=== PATIENT | female | born 1965 | race Caucasian/White ===

== ENCOUNTER 2019-11-20 10:17 | Outpatient (CLI) | payer OTHER, SELFPAY ==
--- NOTE | ~2019-11-20 | MM_ITS ---
EXAMINATION: MM screening [facility] BI w peterson HISTORY: Screening mammogram TECHNIQUE: Craniocaudal and mediolateral oblique 3-D tomosynthesis images were obtained and synthetic 2-D images were generated. Bilateral rotated lateral cc views. Bilateral rotated lateral CC views. ..CAD analysis was submitted and interpreted. COMPARISON: 11/14/2018, 11/01/2017, 10/30/2016 bilateral digital screening mammogram examinations BREAST PARENCHYMAL COMPOSITION: 11/14/2018, 11/01/2017, 10/30/2016 bilateral digital screening mammogram examinations FINDINGS: Scattered bilateral benign calcifications. There is no evidence of suspicious mass, calcifi cation, or architectural distortion to suggest malignancy in either breast. There has been no suspici ous interval change. IMPRESSION: 1. No mammographic evidence of malignancy. 2. Recommend routine screening mammography in one year. BI-RADS Category 2: Benign finding(s). Reviewed, dictated and finalized at location A.
== END 2019-11-20 10:18 | disposition home or self-care (01) ==
PROVIDERS: PCP Internal Medicine; Visit Provider Obstetrics & Gynecology
DX: Z12.31 Encounter for screening mammogram for malignant neoplasm of breast (principal)
CPT/HCPCS: 77063; 77067

== ENCOUNTER 2020-02-24 06:13 | Emergency (ER) | payer OTHER, SELFPAY ==
[2020-02-24] VITALS (11 sets, daily range): BP systolic 114–148; BP diastolic 65–71; PULSE 63; RESP 19; TEMP 36.8; O2SAT 100
--- NOTE | ~2020-02-24 | CT_ITS ---
EXAMINATION: CT abdomen pelvis w con DATE: 02/24/2020 09:20 INDICATION: Epigastric abdominal pain TECHNIQUE: Computed tomography (CT) of the abdomen and pelvis was performed with 100 cc Omnipaque 350 intravenous contrast. Automated exposure control and iterative reconstruction technique were employe d. Exam dose: 309.90 mGy-cm total exam DLP. COMPARISON: None. FINDINGS: There is minimal discoid atelectasis or scarring in the dependent lung bases. Normal heart size. No pericardial or pleural effusion. There is an approximately 6 mm left hepatic cyst. Probable very small cyst of the lower pole of the r ight kidney, too small to definitively characterize. Otherwise no hepatic, splenic, pancreatic, adren al or renal space-occupying mass lesion is evident. The gallbladder is present. No gallbladder wall t hickening. No pericholecystic fluid or fat stranding. No bile duct or pancreatic duct dilatation. Normal caliber of the abdominal aorta. No intraperitoneal or retroperitoneal or pelvic mass lesion or adenopathy or ascites. The uterus, adnexal areas and urinary bladder are unremarkable. No bowel obstruction or intraperitoneal free air is detected. There are nonspecific nondilated fluid distended small bowel segments. Probable bone island of right iliac crest. Included skeletal structures are otherwise unremarkable. IMPRESSION: Small hepatic cyst and probable very small right renal cyst Reviewed, dictated and finalized at Location A. Reviewed, dictated and finalized at location A.
--- NOTE | ~2020-02-24 | US_ITS ---
EXAMINATION: US right upper quadrant DATE: 02/24/2020 08:02 INDICATION: Right upper quadrant pain TECHNIQUE: Multiple grayscale and Doppler ultrasound images of the abdomen were obtained. COMPARISON: None available FINDINGS: The head, body, and tail of the pancreas are normal. The liver is normal with normal echoge nicity and echotexture. No surface nodularity. Normal hepatopetal flow in the main portal vein. The g allbladder is normal with no abnormal wall thickening, pericholecystic fluid or stones. The normal co mmon bile duct measures 5 mm. There was no sonographic Cunningham sign. IMPRESSION: 1. Normal sonographic study of the gallbladder. Reviewed, dictated and finalized at location B.
[2020-02-24 06:41] LABS: Basophils Percent Auto 0.4 % (0.2-1.2); Eosinophils Percent Auto 0.5 % (0-4.4); Hemoglobin 13.7 g/dL (12.0-15.0); Immature Granulocyte Absolute 0.03 K/mm3 (0.00-0.031); Immature Granulocyte Percent A 0.4 % (0-0.5); Lymphocytes Absolute Auto 1.44 K/mm3 (0.9-3.2); Lymphocytes Percent Auto 17.8 % (18.3-44.2); Mean Corpuscular HGB Conc 33.4 g/dl (32-36); Mean Corpuscular Hemoglobin 29.1 pg (26-34); Mean Corpuscular Volume 87.2 fl (80-100); Mean Platelet Volume 9.5 fl (7.4-10.4); Monocytes Absolute Auto 0.3 K/mm3 (0.1-0.6); Monocytes Percent Auto 3.5 % (2.6-8.5); Neutrophils Absolute Auto 6.3 K/mm3 (1.3-6.7); Neutrophils Percent Auto 77.4 % (45.5-73.1); Platelet Count Result 310 k/mm3 (150-375); Red Cell Distribution Width 12.2 % (11.5-14.5); White Blood Count 8.1 K/mm3 (4.5-10.0)
[2020-02-24 06:48] LABS: Add Urine Microscopic? YES; Amorphous Sediment Urine Moderate; Appearance Urine Turbid (Clear); Bilirubin Urine Negative (Negative); Blood Urine Negative (Negative); Color Urine Yellow (Yellow); Glucose Urine UA Negative (Negative); Ketones Urine Negative (Negative); Leukocyte Esterase Ur Trace LEU/UL (Negative); Mucus Urine Rare /lpf; Nitrate Urine Negative (Negative); Protein Urine Negative (Negative); Specific Grav Ur 1.018 (1.001-1.035); Urobilinogen Urine Negative mg/dL (<2.0); WBC Urine 0-3 /hpf
[2020-02-24 06:55] LABS: Alanine Aminotransferase 15 U/L (4-35); Albumin Level 4.5 g/dL (3.5-5.1); Alkaline Phosphatase 81 U/L (38-126); Anion Gap 7 mmol/L (8-16); Aspartate Amino Transferase 23 U/L (14-36); Bilirubin,Total 0.6 mg/dL (0.2-1.3); Blood Urea Nitrogen 12 mg/dL (7-17); Calcium 9.9 mg/dL (8.4-10.2); Carbon Dioxide 28 mmol/L (22-30); Chloride 99 mmol/L (98-107); Estimated CRCL calculation 72 ml/min; Estimated Glomerular Filt Rate > 60; Glucose 127 mg/dL (65-105); Lipase 35 U/L (23-300); Potassium 3.5 mmol/L (3.4-5.0); Sodium 134 mmol/L (137-145)
--- NOTE | 2020-02-24 07:13 | ECG_ITS ---
Measurements Intervals [place] Rate: 49 P: 67 CO: 142 QRS: 55 QRSD: 92 T: 66 QT: 471 QTc: 428 Interpretive Statements SINUS BRADYCARDIA VENTRICULAR PREMATURE COMPLEX ABNORMAL ECG Electronically Signed On 02-24-2020 8:21:47 CDT by Humberto Bateman D.O.
--- NOTE | 2020-02-24 07:14 | ED.ABDPAIN ---
HPI - Abdominal Pain General Chief Complaint: Abdominal Pain Stated Complaint: Abd pain Time Seen by Provider: 02/24/20 07:04 Source: patient Mode of arrival: ambulatory Limitations: no limitations History of Present Illness HPI narrative: This patient is 54 year old female who presents for evaluation of epigastric pain starting at midnight. She reports her pain has been constant. She denies any other associated sypmtoms such as nausea, vomiting, fever or chills. She denies any exacerbating factors. She tried taking over the counter medication without relief. She denies history of gallstones. MD elicited complaint: abdominal pain Onset (ago): hour(s) (7) Location: epigastric Quality: sharp Exacerbating factors: nothing Relieving factors: nothing Related Data Home Medications Medication Instructions Recorded Confirmed levothyroxine 02/24/20 Allergies Allergy/AdvReac Type Severity Reaction Status Date / Time No Known Allergies Allergy Verified 02/24/20 06:33 Review of Systems Review of Systems: All systems reviewed & are unremarkable except as noted in HPI and below Constitutional: Constitutional: Denies chills and Denies fever(s) Cardiovascular: Cardiovascular: Denies chest pain Respiratory: Respiratory: Denies cough and Denies dyspnea Gastrointestinal: Gastrointestinal: Reports abdominal pain, Reports diarrhea, Denies nausea and Denies vomiting PMFSH Past Medical History Medical History (Updated 02/24/20 @ 11:18 by Lelo Chong MD) Hypothyroid Surgical History Surgical History (Updated 02/24/20 @ 07:14 by Lelo Chong MD) History of thyroidectomy Social History Social History Smoking status: Never smoker Alcohol intake: never Exam Narrative: Exam Narrative: GENERAL: Well-appearing, well-nourished, and in no acute distress. HEAD: Normocephalic, atraumatic EYES: PERRLA and EOMI, conjunctiva clear without discharge THROAT:Mucous membranes moist, Oropharynx normal without erythema, exudate, peritonsillar swelling or fluctuance NECK: Supple, without lymphadenopathy or mass RESPIRATORY: No respiratory distress, Airway patent, Respirations non-labored, Clear to auscultation without rales, rhonchi or wheeze HEART: Regular rate and rhythm. No murmur heard. Normal peripheral pulses. ABDOMEN: Soft, nontender, nondistended, normal active bowel sounds. No masses. No rebound or guarding, No organomegaly. EXTREMITIES: No edema, normal strength with full range of motion. SKIN: Warm, dry, normal color without rash NEURO: Alert and oriented x3. CN 2-12 grossly intact. No focal deficits. PSYCH: Normal mood and affect. Course Reevaluation(s) Reevaluation #1: Patient states her pain is unchanged after GI cocktail. I will order CT scan. Date: 02/24/20 Time: 09:00 Reevaluation #2: she states she feels better. I discussed CT. She will follow up with pcp Date: 02/24/20 Time: 11:16 Vital Signs Vital signs: Vital Signs Temperature 98.2 F 02/24/20 06:18 Pulse Rate 63 02/24/20 06:18 Respiratory Rate 19 02/24/20 06:18 Blood Pressure 148/68 H 02/24/20 06:18 Pulse Oximetry 100 02/24/20 06:18 Temperature 98.2 F 02/24/20 06:18 Pulse Rate 63 02/24/20 06:18 Respiratory Rate 19 02/24/20 06:18 Blood Pressure 114/65 02/24/20 11:00 Pulse Oximetry 100 02/24/20 11:15 MDM - Abdominal Pain Lab Data Attestation: I reviewed the patient's lab results. Result diagrams: 02/24/20 06:34 02/24/20 06:34 Labs: Lab Results 02/24/20 02/24/20 02/24/20 Range/Units 06:34 06:34 06:34 WBC 8.1 (4.5-10.0) K/mm3 RBC 4.70 (4.2-5.4) M/mm3 Hgb 13.7 (12.0-15.0) g/dL Hct 41.0 (37.0-47.0) % MCV 87.2 (80-100) fl MCH 29.1 (26-34) pg MCHC 33.4 (32-36) g/dl RDW 12.2 (11.5-14.5) % Plt Count 310 (150-375) k/mm3 MPV 9.5 (7.4-10.4) fl Immature Gran % (Auto) 0.4 (0-0.5) % Neut %
[2020-02-24] MEDS: BELLADONNA ALK/PHENOB ELIX 10 ML, MAG HYDROX/ALUMINUM HYD/SIMETH 30 ML, LIDOCAINE HCL 2... PO (08:05)
[2020-02-24] MEDS: MORPHINE SULFATE 4 MG/ML INJ IV PUSH (09:08)
[2020-02-24] MEDS: ONDANSETRON INJ 4 MG/2 ML VIAL IV PUSH (09:09)
[2020-02-24] MEDS: PANTOPRAZOLE SODIUM IV 40 MG VIAL IV PUSH (09:09)
[2020-02-24 11:05] LABS: Troponin I < 0.012 ng/mL (0.000-0.034)
== END 2020-02-24 11:28 | disposition home or self-care (01) ==
PROVIDERS: Emergency Medicine; Emergency Provider General Practice; PCP Internal Medicine
DX: R10.13 Epigastric pain (principal); E89.0 Postprocedural hypothyroidism; K76.89 Other specified diseases of liver; R00.1 Bradycardia, unspecified; I49.3 Ventricular premature depolarization
CPT/HCPCS: 36415; 74177; 76705; 80053; 81001; 81025; 83690; 84484; 85025; 93005; 96374; 96375; 99284; A9270; C9113; J2270; J2405; Q9967

== ENCOUNTER 2020-11-24 08:12 | Outpatient (CLI) | payer OTHER, SELFPAY ==
--- NOTE | ~2020-11-24 | MM_ITS ---
EXAMINATION: MM screening [facility] BI w peterson HISTORY: Screening mammogram TECHNIQUE: Craniocaudal and mediolateral oblique 3-D tomosynthesis images were obtained and synthetic 2-D images were generated. CAD analysis was submitted and interpreted. COMPARISON: 11/2019, 11/14/2018, 11/01/2017 bilateral digital screening mammogram examinations BREAST PARENCHYMAL COMPOSITION: The breasts are heterogeneously dense, which may obscure small masses . FINDINGS: Benign calcifications are again noted. There is no evidence of suspicious mass, calcificati on, or architectural distortion to suggest malignancy in either breast. There has been no suspicious interval change. IMPRESSION: 1. No mammographic evidence of malignancy. 2. Recommend routine screening mammography in one year. BI-RADS Category 2: Benign finding(s). Reviewed, dictated and finalized at location A.
== END 2020-11-24 08:13 | disposition home or self-care (01) ==
LOC: ANHIMG 08:16
PROVIDERS: PCP Internal Medicine; Visit Provider Obstetrics & Gynecology
DX: Z12.31 Encounter for screening mammogram for malignant neoplasm of breast (principal)
CPT/HCPCS: 77063; 77067

== ENCOUNTER 2021-12-05 10:26 | Outpatient (CLI) | payer OTHER, SELFPAY ==
--- NOTE | ~2021-12-05 | MM_ITS ---
EXAMINATION: MM screening [facility] BI w peterson HISTORY: Screening mammogram TECHNIQUE: Craniocaudal and mediolateral oblique 3-D tomosynthesis images were obtained and synthetic 2-D images were generated. Bilateral rotated lateral CC views. CAD analysis was submitted and interp reted. COMPARISON: 11/24/2020, 11/2019, 11/14/2018, 11/01/2017 bilateral screening mammogram examinations BREAST PARENCHYMAL COMPOSITION: The breasts are extremely dense, which lowers the sensitivity of mamm ography. FINDINGS: Scattered bilateral benign calcifications. There is no evidence of suspicious mass, calcifi cation, or architectural distortion to suggest malignancy in either breast. There has been no suspici ous interval change. IMPRESSION: 1. No mammographic evidence of malignancy. 2. Recommend routine screening mammography in one year. BI-RADS Category 2: Benign finding(s). Reviewed, dictated and finalized at location A.
== END 2021-12-05 10:27 | disposition home or self-care (01) ==
LOC: ANHIMG 10:28
PROVIDERS: PCP Internal Medicine; Visit Provider Obstetrics & Gynecology
DX: Z12.31 Encounter for screening mammogram for malignant neoplasm of breast (principal)
CPT/HCPCS: 77063; 77067

== ENCOUNTER 2022-05-02 13:55 | Outpatient (CLI) | payer OTHER, SELFPAY ==
--- NOTE | ~2022-05-02 | XR_ITS ---
EXAMINATION: XR chest 2V DATE: 05/02/2022 14:18 INDICATION: Cough TECHNIQUE: PA and lateral views of the chest are obtained. COMPARISON: None available FINDINGS: The lungs are free of acute opacities. No pleural effusion or pneumothorax. The cardiomedia stinal silhouette is normal. There is mild thoracic spondylosis. IMPRESSION: 1. No acute cardiopulmonary abnormality. Reviewed, dictated and finalized at location F. 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
== END 2022-05-02 13:56 | disposition home or self-care (01) ==
LOC: ANHIMG 13:57
PROVIDERS: PCP Internal Medicine; Visit Provider Internal Medicine
DX: R05.9 Cough, unspecified (principal)
CPT/HCPCS: 71046

== ENCOUNTER → 2023-01-22 10:11 | Outpatient (CLI) | payer OTHER, SELFPAY ==
--- NOTE | ~2023-01-22 | MM_ITS ---
EXAMINATION: MM screening [facility] BI w peterson HISTORY: Screening mammogram TECHNIQUE: Craniocaudal and mediolateral oblique 3-D tomosynthesis images were obtained and synthetic 2-D images were generated. CAD analysis was submitted and interpreted. COMPARISON: 12/05/2021, 11/24/2020, 11/20/2019 BREAST PARENCHYMAL COMPOSITION: The breasts are extremely dense, which lowers the sensitivity of mamm ography. FINDINGS: No suspicious mass, calcification, or architectural distortion are identified in either maverick ast to suggest malignancy. There has been no suspicious interval change. IMPRESSION: 1. No mammographic evidence of malignancy. 2. Recommend routine screening mammography in one year. BI-RADS Category 1: Negative Reviewed, dictated and finalized at location A.
== END ==
PROVIDERS: PCP Obstetrics & Gynecology; Visit Provider Obstetrics & Gynecology
DX: Z12.31 Encounter for screening mammogram for malignant neoplasm of breast (principal)
CPT/HCPCS: 77063; 77067

== ENCOUNTER 2024-01-24 14:45 | Outpatient (CLI) | payer OTHER, SELFPAY ==
--- NOTE | ~2024-01-24 | MM_ITS ---
EXAMINATION: MM screening [facility] BI w peterson HISTORY: Screening TECHNIQUE: Craniocaudal and mediolateral oblique 3-D tomosynthesis images were obtained and synthetic 2-D images were generated. CAD analysis was submitted and interpreted. COMPARISON: Comparison to multiple prior studies sequentially, with oldest reviewed study dated 11/01. BREAST PARENCHYMAL COMPOSITION: Dense: The breasts are heterogeneously dense, which may obscure small masses FINDINGS: There is a developing asymmetry superiorly in the left breast on MLO view. The right breast is stable without evidence for malignancy. IMPRESSION: 1. Developing left breast asymmetry. 2. Additional mammographic views and possible breast ultrasound are recommended. BI-RADS Category 0: Incomplete: Needs additional imaging evaluation. Reviewed, dictated and finalized at location B. IMPRESSION: 1. Developing left breast asymmetry. 2. Additional mammographic views and possible breast ultrasound are recommended . BI-RADS Category 0: Incomplete: Needs additional imaging evaluation.
== END 2024-01-24 14:46 ==
LOC: MICIMG 14:46
PROVIDERS: PCP Obstetrics & Gynecology; Visit Provider Obstetrics & Gynecology
DX: Z12.31 Encounter for screening mammogram for malignant neoplasm of breast (principal); R92.8 Other abnormal and inconclusive findings on diagnostic imaging of breast
CPT/HCPCS: 77063; 77067

== ENCOUNTER 2024-02-21 08:16 | Outpatient (CLI) | payer OTHER, SELFPAY ==
--- NOTE | ~2024-02-21 | MMUS_ITS ---
EXAMINATION: MM diagnostic lazaro LT w peterson, US breast LT complete HISTORY: Follow-up left breast asymmetry TECHNIQUE: Additional 3-D tomosynthesis images of the left breast were performed and synthetic 2-D im ages were generated. CAD analysis was submitted and interpreted. High resolution complete left breast ultrasound was performed. COMPARISON: Comparison to multiple prior studies sequentially, with oldest reviewed study dated 11/14. BREAST PARENCHYMAL COMPOSITION: Dense: The breasts are heterogeneously dense, which may obscure small masses FINDINGS: MAMMOGRAPHIC FINDINGS: Focal asymmetry in the upper outer quadrant of the left breast is less apparent with spot compression and mediolateral views. There are benign left breast calcifications. There are no suspicious areas o f architectural distortion. No skin thickening. ULTRASOUND: Limited left breast ultrasound: At 2:00, 5 cm from the nipple there is an intramammary lymph node ariela suring 9 mm. There are multiple cysts of the left breast. Largest cyst at 3:00, 3 cm from the nipple measuring 8 mm. No suspicious masses to suggest malignancy. IMPRESSION: 1. No evidence for malignancy in the left breast. Benign findings. 2. Routine yearly screening mammogram and regular clinical breast examination are recommended. BI-RADS Category 2: Benign finding(s). Reviewed, dictated and finalized at location B. IMPRESSION: 1. No evidence for malignancy in the left breast. Benign findings. 2. Routine yearly screening mammogram and regular clinical breast examination a re recommended. BI-RADS Category 2: Benign finding(s).
== END 2024-02-21 08:17 | disposition home or self-care (01) ==
LOC: MICIMG 08:18
PROVIDERS: PCP Nurse Practitioner; Visit Provider Obstetrics & Gynecology
DX: R92.8 Other abnormal and inconclusive findings on diagnostic imaging of breast (principal)
CPT/HCPCS: 76641; 77061; 77065; G0279

== ENCOUNTER 2025-02-09 14:00 | Outpatient (CLI) | payer OTHER, SELFPAY ==
--- NOTE | ~2025-02-09 | MM_ITS ---
EXAMINATION: screening [facility] BI w peterson INDICATION: Asymptomatic, referred for screening mammogram COMPARISON: 01/24/2024 through 11/14/2018 TECHNIQUE: Digital Breast Tomosynthesis CC, MLO views of Both breasts were obtained with computer-aided detection to assist in interpretation of the study. FINDINGS: The breasts are heterogeneously dense, which may obscure small masses. There is a group of increasing microcalcifications in the subareolar right breast near the nipple. Elsewhere, there are no mammographic features of malignancy. Benign-appearing calcifications diffusely scattered throughout the rest the breasts are unchanged. IMPRESSION: 1. Right breast Incompletely characterized group of calcifications. 2. No evidence of malignancy in the Left breast. RECOMMENDATION: Right breast Diagnostic mammogram with true lateral, and appropriate magnification views. BI-RADS Category 0: Incomplete: Needs additional imaging evaluation. Reviewed, dictated and finalized at location B. IMPRESSION: 1. Right breast Incompletely characterized group of calcifications. 2. No evidence of malignancy in the Left breast. RECOMMENDATION: Right breast Diagnostic mammogram with true lateral, and appropriate magnificat ion views. BI-RADS Category 0: Incomplete: Needs additional imaging evaluation.
== END 2025-02-09 14:01 | disposition home or self-care (01) ==
LOC: MICIMG 14:01
PROVIDERS: PCP Nurse Practitioner; Visit Provider Obstetrics & Gynecology
DX: Z12.31 Encounter for screening mammogram for malignant neoplasm of breast (principal); R92.8 Other abnormal and inconclusive findings on diagnostic imaging of breast
CPT/HCPCS: 77063; 77067

== ENCOUNTER 2025-02-12 11:00 | Outpatient (RCR) | payer OTHER, SELFPAY ==
--- NOTE | 2024-12-25 12:03 | OPREHPOC ---
Outpatient Therapy Plan of Care This is a Multidisciplinary Plan of Care that may contain components documented by all disciplines (PT, OT, and ST.) PT Problem 1 PT Problem #1 Knowledge Deficit PT Goal 1 Goal / Goal Update Patient to demonstrate independence with HEP for improved self-reliance of symptom management. Target Visit 4 PT Problem 2 PT Problem #2 Pain PT Goal 1 Goal / Goal Update 1.Patient to decrease subjective reports of L knee pain when descending stairs to <2/10 for improved stair negotiation. 2. Patient to decrease subjective reports of Vasquez hip pain when sleeping for 2 consecutive weeks to <2/10 for improved sleep tolerance. Target Visit 8 PT Problem 3 PT Problem #3 Impaired Range of Motion PT Goal 1 Goal / Goal Update 1. Pt to demonstrate an increase of Vasquez hip ER/IR AROM of WFL to improve LE dressing. 2. Patient to demonstrate an increase of L knee AROM of 2-120 deg to improve mobility required for gait/stair negotiation. 3. Patient to demonstrate an increase in L hamstring length of 20 deg to improve flexibility. Target Visit 8 PT Problem 4 PT Problem #4 Impaired Strength PT Goal 1 Goal / Goal Update 1. Patient to demonstrate L knee strength >=5/5 for improved functional stability required for ADLs. 2. Patient to demonstrate Vasquez hip strength >=5/5 for improved functional stability required for ADLs. Target Visit 8
--- NOTE | 2024-12-25 12:03 | PTOPEVAL1 ---
Assessment and note entered by Elisa Solis, PT Evaluation Information Assessment Status Evaluation Diagnosis L knee and VASQUEZ hip pain ICD-10 Condition Codes (PT) Pain in right hip M25.551,Pain in left hip M25.552 ,Pain in left knee M25.562 Onset >2 years Subjective Information Pt reports going into the doctor for her L knee initially. She has always had knee pain due to an old meniscus tear and played soccer all her life. She thinks her knee is swollen after prolonged walking and standing. 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 Within the first quarter mile of her daily walk her L knee starts to hurt but she pushes through. She is having difficulty with lifting/carrying heavy boxes, stairs, running, jumping, and increased B hip pain when sleeping at night. Reported Pain Level Pain Score 1,0: Self Report Assessment PT Clinical Summary Pt is a 59 year old female who presents to physical therapy with a primary complaint of chronic L knee pain and acute Vasquez hip pain. Pt demonstrates Vasquez hip and L knee weakness, L knee pain reproduction with resistance and eccentrics, decreased mobility, gait deficit, and decreased flexibility that limit their ability to perform ADLs. Pt will benefit from skilled physical therapy to address the above listed deficits and return to PLOF. HEP instructed and written handout provided, EX tolerated well with no adverse effects to note post-session. Pt was educated on importance of adherence to HEP. Pt was also educated on anatomy, prognosis, home modalities, and PT POC. Plan of Care Interventions Electrical Stimulation,Gait Training,Hot Pack/Cold Pack,Intermittent Compression Pump,Manual Therapy ,Neuro Re-education,Therapeutic Activities, Therapeutic Exercise PT Services Indicated Yes Treatment Frequency and 2x/wk for 8 sessions Duration These treatments will address the objective and functional deficits as defined above. The patient will be advanced safely and appropriately in order for the patient to progress towards his/her prior level of function. Additional exercises will be introduced and as well as a comprehensive home exercise program upon discharge, if needed, ?to ensure carryover of functional gains achieved in the clinic. This treatment plan has been reviewed and agreement upon by the patient.
--- NOTE | 2025-01-22 09:52 | OPREHPOC ---
Outpatient Therapy Plan of Care This is a Multidisciplinary Plan of Care that may contain components documented by all disciplines (PT, OT, and ST.) PT Problem 1 PT Problem #1 Knowledge Deficit PT Goal 1 Goal / Goal Update Patient to demonstrate independence with HEP for improved self-reliance of symptom management. Target Visit 4 Progress Met PT Problem 2 PT Problem #2 Pain PT Goal 1 Goal / Goal Update 1.Patient to decrease subjective reports of L knee pain when descending stairs to <2/10 for improved stair negotiation. 2. Patient to decrease subjective reports of Vasqeuz hip pain when sleeping for 2 consecutive weeks to <2/10 for improved sleep tolerance. Target Visit 8 Progress Met PT Problem 3 PT Problem #3 Impaired Range of Motion PT Goal 1 Goal / Goal Update 1. Pt to demonstrate an increase of Vasquez hip ER/IR AROM of WFL to improve LE dressing. (01/22/25 progressing) 2. Patient to demonstrate an increase of L knee AROM of 2-120 deg to improve mobility required for gait/stair negotiation. (01/22/25 MET) 3. Patient to demonstrate an increase in L hamstring length of 20 deg to improve flexibility. (01/22/25 MET) Target Visit 8 Progress Partially Met PT Problem 4 PT Problem #4 Impaired Strength PT Goal 1 Goal / Goal Update 1. Patient to demonstrate L knee strength >=5/5 for improved functional stability required for ADLs. (01/22/25 MET) 2. Patient to demonstrate Vasquez hip strength >=5/5 for improved functional stability required for ADLs. (01/22/25 all planes met excpt 4+/5 abduction VASQUEZ) Target Visit 8 Progress Partially Met PT Goal 1 Goal / Goal Update Patient to complete floor to/from waist transfers/ lifts with no reported pain or instability or cueing required to ensure correct mechanics with functional lifting activities. Target Visit 6
--- NOTE | 2025-01-22 09:52 | PTOPPROG ---
Assessment and note entered by Elisa Solis, PT Evaluation Information Assessment Status Progress Diagnosis L knee and MAGI hip pain ICD-10 Condition Codes (PT) Pain in right hip M25.551,Pain in left hip M25.552 ,Pain in left knee M25.562 Onset >2 years Subjective Information Pt reports the ability to walk at least 1 mile everyday with no increase in knee or hip pain. She has had a day where her hips were bothering her rating it no greater than 2/10 for the last 2+ weeks. Pt has denied knee pain the last 2-3 weeks as well. Pt has been HEP compliant since eval date and feels comfortable with the core and hip strengthening exercises. Pt reports overall improvement of 90-95% since first starting therapy . She does have some trouble with sitting for over an hour because her hips will feel tight and achy . She is very active and sitting for too long is difficult. She is reporting issues with squatting down to lift heavier objects and groceries due to feeling of unsteadiness on the L knee. Assessment PT Clinical Summary Patient's condition has improved overall as evidenced by advancements in symptoms, mobility, strength, and overall functional use tolerance to ADLs. However, some limitations are still present such as hip abduction weakness, limited hip IR/ER ROM, and functional transfers/carrying. Patient would benefit from continued skilled PT services to address the above listed impairments and facilitate a return to their PLOF. Plan of Care Interventions Electrical Stimulation,Gait Training,Hot Pack/Cold Pack,Intermittent Compression Pump,Manual Therapy ,Neuro Re-education,Therapeutic Activities, Therapeutic Exercise PT Services Indicated Yes Treatment Frequency and 1-2x/wk for 6 sessions Duration These treatments will address the objective and functional deficits as defined above. The patient will be advanced safely and appropriately in order for the patient to progress towards his/her prior level of function. Additional exercises will be introduced and as well as a comprehensive home exercise program upon discharge, if needed, ?to ensure carryover of functional gains achieved in the clinic. This treatment plan has been reviewed and agreement upon by the patient.
--- NOTE | 2025-02-12 11:34 | PTOPDC ---
Assessment and note entered by Elisa Solis, PT Evaluation Information Assessment Status Discharge Diagnosis L knee and MAGI hip pain ICD-10 Condition Codes (PT) Pain in right hip M25.551,Pain in left hip M25.552 ,Pain in left knee M25.562 Onset >2 years Subjective Information Pt reports feeling 100% improvement since starting therapy. She is I with her HEP and walking program. She feels confident continuing to manage her care on her own. Reported Pain Level Pain Score 0,0: Self Report Assessment PT Clinical Summary Patient's condition has improved overall as evidenced by advancements in symptoms, mobility, strength, and overall functional tolerance to ADLs . She is I with her normal exercise routine plus exercises she has been shown in PT. She is back to a normal walking routine as well. Pt has met all therapy goals and is pleased with progress made in PT. Patient to DC from PT this date and continue with updated HEP as instructed. Pt to contact PT or PCP if questions or concerns arise. Plan of Care PT Services Indicated Yes
== END 2025-02-25 14:49 | disposition home or self-care (01) ==
LOC: ANHGOSHPT 11:00
PROVIDERS: PCP Nurse Practitioner; Visit Provider Orthopaedic Surgery
DX: M70.62 Trochanteric bursitis, left hip (principal); M25.562 Pain in left knee
CPT/HCPCS: 97110; 97112; 97140; 97161; 97530

== ENCOUNTER 2025-03-03 10:46 | Outpatient (CLI) | payer OTHER, SELFPAY ==
--- NOTE | ~2025-03-03 | MM_ITS ---
EXAMINATION: MM diagnostic lazaro RT w peterson HISTORY: Inconclusive mammogram TECHNIQUE: Additional images of the right breast]] were performed using full field digital mammography. 3-D tomosynthesis were also obtained and synthetic 2- D images were generated. CAD analysis was submitted and interpreted. ] COMPARISON: Mammograms from 02/09/2025, 02/21/2024, 01/24/2024 and 01/22/2023 BREAST PARENCHYMAL COMPOSITION: The breasts are extremely dense which lowers the sensitivity of mammography. FINDINGS: MAMMOGRAPHIC FINDINGS: Probably benign loose grouping of calcifications in the right retroareolar region. IMPRESSION/RECOMMENDATION: 1. Probably benign calcifications in the right breast. A diagnostic right breast mammogram in 6 months recommended. BI-RADS 3-Probably benign-Short interval follow-up suggested. Reviewed, dictated and finalized at location Q. IMPRESSION/RECOMMENDATION: 1. Probably benign calcifications in the right breast. A diagnostic right breas t mammogram in 6 months recommended. BI-RADS 3-Probably benign-Short interval follow-up suggested.
--- OUTSIDE RECORDS SUMMARY | 2025-03-03 12:44 | XMS_ITS | Clinical Summary ---
Author Organization [facility] (formerly [facility]) at the [facility] Address [address] [place] [address] Care Team Providers Care Dietitian Teaching Name Role Phone Jose Hooks NP Primary Care Provider [phone] Allergies No known active allergies Medications levothyroxine (SYNTHROID) 100 mcg tablet Take 1 tablet (100 mcg total) by mouth daily 10/31/2022 Active estradiol-noreth indrone (ACTIVELLA) 1-0.5 mg per tablet 12/07/2022 Active ALPRAZolam (XANAX) 0.5 mg tablet Take 1 tablet (0.5 mg total) by mouth 2 (two) times a day 2 tablet 04/18/2023 Active Active Problems Problem Noted Date Diagnosed Date Varicose veins of lower extremity 12/20/2022 Assessment & Plan (05/21/2023 3:41 PM COW TENDER): Impression: Patient is status post EVLT and stab phlebectomy to the left lower extremity for venous insufficiency with symptomatic varicosities. Stab phlebectomy sites have healed. Preprocedural discomfort has resolved. Venous reflux performed on postop day 3 and postop 4 weeks reveals an ablated left great saphenous vein with no acute DVT. Plan: Patient may continue utilizing compression stockings for bilateral lower extremities. -patient to follow-up on an as-needed basis. Surgical History Surgery Date Site/Laterality Comments THYROIDECTOMY 05/18/2009 - 06/17/2009 KNEE SURGERY 06/18/2010 - 06/17/2011 OOPHORECTOMY 12/16/2008 - 01/15/2009 Right Social History Tobacco Use Types Packs/Day Years Used Date Smoking Tobacco: Never Passive Smoke Exposure: Never Smokeless Tobacco: Never Tobacco Cessation:Counseling Given: No Personal Safety Answer Date Recorded Getting School Help Needed Not on file 09/01 Comments Unknown Sex and Gender Information Value Date Recorded Sex Assigned at Not on file Legal Sex Female 2:25 AM COW TENDER Gender Identity Not on file Sexual Orientation Not on file Obstetrics History Last Filed Vital Signs Vital Sign Reading Time Taken Comments Blood Pressure 130/73 04/20/2023 11:39 AM CDT Pulse 61 04/20/2023 11:39 AM CDT Temperature - - Respiratory Rate - - Oxygen Saturation - - Inhaled Oxygen Concentration - - Weight 63 kg (139 lb) 05/21/2023 2:22 PM COW TENDER Height 157.5 cm (5' 2) 05/21/2023 2:22 PM COW TENDER Body Mass Index 25.42 05/21/2023 2:22 PM COW TENDER Plan of Treatment Health Maintenance Due Date Last Done Comments Breast Cancer Screening-Mammogram 1965 Cervical Cancer Screening 1965 Colon Cancer Screening-Colonoscopy 1965 Depression Screening 1965 Hepatitis C Screening 1965 DTaP/Tdap/Td Vaccine (1 - Tdap) 1976 Hepatitis B Screening 1983 Regular Well Visit/Exam 18-64 1983 Zoster Vaccine (1 of 2) 2015 Covid-19 Vaccine (3 - 2024-2 6 season) 2025 09/26/2020, 09/02/2020 Influenza Vaccine (#1) 2025 Pneumococcal vaccine <65 Aged Out No longer eligible based on patient's age to complete this topic Insurance [facility] [employer] HMO/PPO Address: [place] [address] [facility] [employer] [facility] [address] Care Teams Dietitian Teaching Relationship Specialty Start Date End Date Jose Hooks NP [address] [place] [address] PCP - General Nurse Practitioner 12/06/22
== END 2025-03-03 10:47 | disposition home or self-care (01) ==
LOC: ANHFOHIMG 10:47
PROVIDERS: PCP Nurse Practitioner; Visit Provider Obstetrics & Gynecology
DX: R92.1 Mammographic calcification found on diagnostic imaging of breast (principal)
CPT/HCPCS: 77061; 77065; G0279